=== PATIENT | male | born 2000 | race African-American/Black ===

== ENCOUNTER 2021-04-13 21:58 | Emergency (ER) | payer OTHER ==
[~2021-04-13] VITALS: Ht 177.8 cm; Wt 61.2 kg
[2021-04-13] MEDS ORDERED: fentaNYL INJ 100 MCG/2 ML AMP ONE (22:11)
[2021-04-13] MEDS ORDERED: LACTATED RINGERS 1,000 ML IV ONE (22:15)
[2021-04-13] MEDS ORDERED: TETANUS,DIPTH,PERTUSS P/F (BOOSTRIX) 0.5 ML VIAL IM ONE (22:15)
[2021-04-13] MEDS ORDERED: fentaNYL INJ 100 MCG/2 ML AMP IVP ONE (22:15)
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
[2021-04-13 22:34] LABS: HEMATOCRIT 45 % (40-54); HEMOGLOBIN 14.5 g/dL (13.3-17.7); MEAN CORPUSCULAR HEMOGLOBIN 29 pg (25-34); MEAN CORPUSCULAR HGB CONC 33 g/dL (32-36); MEAN CORPUSCULAR VOLUME 90 fL (80-99); MEAN PLATELET VOLUME 10.1 fL (9.0-12.2); PLATELET COUNT 242 10^3/uL (130-400); WHITE BLOOD COUNT 9.1 10^3/uL (4.3-11.0)
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
[2021-04-13 22:47] LABS: ALBUMIN 4.4 GM/DL (3.2-4.5); CHLORIDE 100 MMOL/L (98-107); POTASSIUM 3.5 MMOL/L (3.6-5.0); SODIUM 138 MMOL/L (135-145)
[2021-04-13 22:49] LABS: GLUCOSE 110 MG/DL (70-105); TOTAL PROTEIN 7.9 GM/DL (6.4-8.2)
[2021-04-13 22:50] LABS: CARBON DIOXIDE 23 MMOL/L (21-32)
[2021-04-13 22:51] LABS: BILIRUBIN,TOTAL 0.8 MG/DL (0.1-1.0)
[2021-04-13 22:53] LABS: ALKALINE PHOSPHATASE 104 U/L (40-136); CREATININE SERUM 0.95 MG/DL (0.60-1.30); GFR ESTIMATED 123
[2021-04-13 22:54] LABS: BILIRUBIN,DIRECT 0.3 MG/DL (0.0-0.3); BILIRUBIN,INDIRECT 0.5 MG/DL; BUN/CREATININE RATIO 12
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
[2021-04-13 22:56] LABS: ALANINE AMINOTRANSFERASE 22 U/L (0-55)
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
[2021-04-13] MEDS ORDERED: CATHETER FLUSH 10 ML SYR IV PRN (23:45)
[2021-04-13] MEDS ORDERED: HOLD METFORMIN - RECEIVED CONTRAST 20 ML VIAL IV SCH (23:45)
[2021-04-13] MEDS ORDERED: NS 100 ML (IVPB) BAG IV ONE (23:45)
[2021-04-13] MEDS ORDERED: IOHEXOL 350 MG/ML 100 ML (OMNIPAQUE 350) VIAL IV ONE (23:45)
[2021-04-14 00:16] LABS: BILIRUBIN,URINE NEGATIVE (NEGATIVE); CLARITY,URINE CLEAR; COLOR,URINE YELLOW; GLUCOSE, URINE (UA) NEGATIVE (NEGATIVE); KETONES,URINE NEGATIVE (NEGATIVE); LEUKOCYTE ESTERASE ,URINE NEGATIVE (NEGATIVE); NITRITE,URINE NEGATIVE (NEGATIVE); PROTEIN,URINE NEGATIVE (NEGATIVE)
[2021-04-14 00:22] LABS: BACTERIA,URINE TRACE /HPF; SQUAMOUS EPITHELIAL CELL,UR RARE /HPF; WBC,URINE RARE /HPF
[2021-04-14] MEDS ORDERED: CYCL10TA9 PO (00:38)
[2021-04-14] MEDS ORDERED: RX-CYCLOBENZAPRINE 10 MG (FLEXERIL) TAB PPK#3 PO STA (00:40)
[2021-04-14] MEDS ORDERED: ACHD5005 PO (00:44)
[2021-04-14 00:55] VITALS: BP 124/68
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
[2021-04-14] MEDS ORDERED: ONDA4TAB11 PO (03:14)
== END 2021-04-14 00:59 | disposition home or self-care (01) ==
LOC: EDUNIT# 21:58 → ER 22:03
DX: S06.0X0A Concussion without loss of consciousness, initial encounter (principal); S50.812A Abrasion of left forearm, initial encounter; S50.811A Abrasion of right forearm, initial encounter; S90.812A Abrasion, left foot, initial encounter; R40.2410 Glasgow coma scale score 13-15, unspecified time; V89.2XXA Person injured in unspecified motor-vehicle accident, traffic, initial encounter
CPT/HCPCS: 70450; 71045; 71260; 72125; 72170; 74177; 80048; 80076; 81000; 85027; 86850; 86900; 86901; 86920; 93005; 93041; 99284; G0480; 36415; 80320

== ENCOUNTER → 2022-05-10 | Outpatient (CLI) | payer OTHER ==
[~2022-05-10] MED LIST: ACHD5005 PO; CYCL10TA25 PO; ONDA4TAB11 PO
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
== END ==
LOC: RAD 10:01
PROVIDERS: ATTEND Registered Nurse Critical Care Medicine
DX: S06.0X0A Concussion without loss of consciousness, initial encounter (principal); G44.89 Other headache syndrome; H53.143 Visual discomfort, bilateral; V40.5XXA Car driver injured in collision with pedestrian or animal in traffic accident, initial encounter
CPT/HCPCS: 70450; 72125